=== PATIENT | female | born 1980 | race Caucasian/White ===

== ENCOUNTER 2018-11-24 22:28 | Emergency (ER) | payer MEDICAID ==
[~2018-11-24] VITALS: Ht 152.4 cm; Wt 62.6 kg
[2018-11-24 22:35] VITALS: Ht 152.4 cm; Wt 62.6 kg
[2018-11-25 00:19] VITALS: BP 112/72
== END 2018-11-25 00:19 | disposition home or self-care (01) ==
LOC: ED 22:28
DX: J18.8 Other pneumonia, unspecified organism (principal)
CPT/HCPCS: J0696